=== PATIENT | male | born 1995 | race Caucasian/White ===

== ENCOUNTER 2016-07-25 20:55 | Emergency (ER) | payer SELFPAY ==
[~2016-07-25] VITALS: Ht 172.7 cm; Wt 74.5 kg
[2016-07-25 20:59] VITALS: Ht 172.7 cm; Wt 74.5 kg
== END 2016-07-26 00:40 | disposition left against medical advice (07) ==
LOC: FTE 20:55
DX: Z53.21 Procedure and treatment not carried out due to patient leaving prior to being seen by health care provider (principal)